=== PATIENT | female | born 1990 | race American Indian/Alaskan Native ===

== ENCOUNTER 2019-10-20 12:29 | Inpatient (IN) | payer MEDICAID ==
--- NOTE | 2019-10-20 14:39 | Ultrasound Report ---
ULTRASOUND OBSTETRIC Indication: size smaller than dates Findings: There is a single intrauterine . BPD = 8.3 cm = 33 weeks, 3 day(s). Head circumference = 28.5 cm = 31 weeks, 2 day(s). Abdominal circumference = 24.1 cm = 28 weeks, 3 day(s). Femur length = 6.4 cm = 33 weeks, 3 day(s). Overall estimated sonographic age = 31 weeks, 4 day(s). heart rate is 137 beats per minute. Estimated weight is 1610 grams position is cephalic. Amniotic fluid volume appears normal. LYNDA equals 7 cm Impression: 1. Single living intrauterine with estimated sonographic age of 31 weeks, 4 day(s). 2. Sonographic dates are approximately 4 weeks less than patient's last period dates. BIOPHYSICAL PROFILE INDICATION: Size smaller than dates COMPARISON: None FINDINGS: breathing movement: 2/2 movement: 0/2 posture and tone: 0/2 Qualitative amniotic fluid volume: 2/2 IMPRESSION: Total score for biophysical profile is 4/8 heart rate is 131 bpm Signer Name: Leandro Franco MD Signed: 10/20/2019 2:34 PM Workstation Name: [id number]
[2019-10-20] MEDS ORDERED: FAMOTIDINE 20 MG/2 ML INJ IV SCH (15:23)
--- NOTE | 2019-10-20 15:44 | History and Physical Report ---
History of Present Illness Date of examination: 10/20/19 (Pt @ 35.5 wks, measuring 31 wks) Date of admission: 10/20/2019 Chief complaint: Pt @ 35.5 wks today measuring 31wks size in office. Also with audible deceleration heard on doppler in office. History of present illness: EDC Calculations LMP: 11/19/2019 EDC Confirmation: 11/19/2019 Gestational Age: 23 6/7 weeks Past History : 7 Term Births: 4 Premature Births: 0 Living Children: 4 Para: 4 Mult. Births: 0 Prev : 4 Prev. attempt? 0 Aborta: 2 Elect. Ab: 0 Spont. Ab: 2 Ectopics: 0 # 1 Delivery date: 06/10/2007 Weeks Gestation: 38 Delivery type: Anesthesia type: general Delivery location: [facility] Sex: Female weight: 5 Comments: emergent c/s abruption # 2 Delivery date: 10/2009 Weeks Gestation: 4 Delivery type: SAB # 3 Delivery date: 09/08/2010 Weeks Gestation: 38 Delivery type: Anesthesia type: epidural Delivery location: [facility] Sex: Male weight: 7 # 4 Delivery date: 2011 Weeks Gestation: 4 Delivery type: SAB # 5 Delivery date: 11/28/2012 Weeks Gestation: 38 Delivery type: Anesthesia type: epidural Delivery location: [facility] Sex: Female weight: 5 # 6 Delivery date: 04/02/2017 Weeks Gestation: 38 Delivery type: Anesthesia type: epidural Delivery location: [facility] Infant Sex: Male weight: 5 Comments: injury to urethra Risk Factors: Smoked Tobacco Use: Never smoker Smokeless Tobacco Use: Never Passive smoke exposure: no Drug use: no HIV high-risk behavior: no Alcohol use: no Exercise: yes Times per week: 2 Seatbelt use: preg-children counselor % Dietary Counseling: pn yes Past Medical History: Negative Past Medical History Past Surgical History: c/s x4. repair to urethra 07/2017 Past Medical History Surgery (Non-pmo business analyst): c/s x4. repair to urethra 07/2017 Abnormal PAP: negative BELKIS Exposure: negative Infertility: negative Uterine Anomaly: negative Uterine Surgery (not C/S): negative Other Gynecologic Problems: negative Family Hx: mom-diabetes mgf-diabetes sister-diabetes Social Hx: single. lives with children unemployed Infection History Hx of STD: none HIV Risk Eval: no Hepatitis B Risk Eval: low risk Partner hx. of genital herpes: no Varicella/Chicken Pox Status: Previous Disease TB Risk: no Genetic History Congenital Heart Defect: Mom: no Dad: no Ernestina Disease: Mom: no Dad: no Thalassemia Mom: no Dad: no Neural Tube Defect Mom: no Dad: no Down's Syndrome Mom: no Dad: no Westley-Sachs Mom: no Dad: no Sickle Cell Disease/Trait Mom: no Dad: no Hemophilia Mom: no Dad: no Muscular Dystrophy Mom: no Dad: no Cystic Fibrosis Mom: no Dad: no [place] Chorea Mom: no Dad: no Mental Retardation Mom: no Dad: no Fragile X Mom: no Dad: no Other Genetic/Chromosomal Disorder Mom: no Dad: no Child w/other defect Mom: no Dad: no Enviromental Exposures Enviromental Exposures Reviewed Xray Exposure: yes Medication, drug, or alcohol use since LMP: no Chemical/Other Exposure: no Exposure to Cat Liter: no Hx of Parvovirus (Fifth Disease): no Occupational Exposure to Children: none Comments: with daughter for x ray in February Active Medications (reviewed today): None Current Allergies (reviewed today): No known allergies Past History Past Medical History: no pertinent history Past Surgical History: section ( section X4), other (Repair to uretha in 07/2017.) Family/Genetic History: none Social history: no significant social history - Obstetrical History Expected Date of Delivery: 11/19/19 Actual Gestation: 35 Week(s) 5 Day(s) : 7 Para: 4 Hx # Term Pregnancies: 4 Number of Pregnancies: 0 Spontaneous Abortions: 2 Induced : 0 Number of Living Children: 4 Medications and Allergies Allergies Allergy/AdvReac Type Severity Reaction Status Date / Time No Known Allergies Allergy Verified 10/20/19 12:36 Active Meds: Active Medications Citric Acid/Sodium Citrate (Bicitra) 30 ml PO ONCE ONE Stop: 10/20/19 16:24 Famotidine (Pepcid) 20 mg IV ONCE SELINA Stop: 10/20/19 23:24 Oxytocin/Sodium Chloride (Pitocin/Ns 20 Unit/1000ml Drip) 20 units in 1,000 mls @ 0 mls/hr IV TITR SELINA Lactated Ringer's (Lactated Ringers) 1,000 mls @ 2,250 mls/hr IV PREOP SELINA Stop: 10/21/19 16:27 Cefazolin Sodium (Ancef/Ns 1 Gm/50 Ml) 1 gm in 50 mls @ 100 mls/hr IV PREOP NR; Protocol Stop: 10/21/19 15:59 Metoclopramide HCl (Reglan) 10 mg IV ONCE ONE Stop: 10/20/19 16:24 Review of Systems All systems: negative - Vital Signs Vital signs: Vital Signs Pulse BP Pulse Ox 82 106/65 99 10/20/19 13:05 10/20/19 13:05 10/20/19 13:05 Temp Pulse Resp BP Pulse Ox 98.1 F 89 20 101/63 100 10/20/19 13:07 10/20/19 15:35 10/20/19 13:07 10/20/19 14:32 10/20/19 15:35 - Physical Exam Breasts: Positive: deferred Cardiovascular: Regular rate Lungs: Positive: Normal air movement Abdomen: Positive: normal appearance Genitourinary (Female): Positive: normal external genitalia, normal perenium Vulva: both: normal Vagina: Positive: normal moisture Uterus: Positive: other ( uterus) Anus/Rectum: Positive: normal perianal skin Extremities: Positive: normal Deep Tendon Reflex Grade: Normal +2 - Obstetrical Uterine Contraction Monitor Mode: External Uterine Contraction Pattern: Absent Uterine Tone Measurement Phase: Resting Results All other labs normal. GBS UNKNOWN. Collected in office on 10/20/2019. Results pending. HBsAg Screen Negative Negative *1 RPR Non Reactive Non Reactive *2 Rubella Antibodies, IgG 1.76 index Immune >0.99 *3 Non-immune <0.90 Equivocal 0.90 - 0.99 Immune >0.99 ABO Grouping O *4 Rh Factor Positive *5 Please note: Prior records for this patient's ABO / Rh type are not available for additional verification. Antibody Screen Negative Negative *6 WBC 7.4 x10E3/uL 3.4-10.8 *7 RBC [L] 3.46 x10E6/uL 3.77-5.28 *8 Hemoglobin [L] 8.4 g/dL 11.1-15.9 *9 Hematocrit [L] 26.9 % 34.0-46.6 *10 MCV [L] 78 fL 79-97 *11 MCH [L] 24.3 pg 26.6-33.0 *12 MCHC [L] 31.2 g/dL 31.5-35.7 *13 RDW [H] 18.1 % 12.3-15.4 *14 Platelets 408 x10E3/uL 150-450 *15 Neutrophils 74 % Not Estab. *16 Lymphs 18 % Not Estab. *17 Monocytes 6 % Not Estab. *18 Eos 1 % Not Estab. *19 Basos 0 % Not Estab. *20 ! Immature Cells <No Reported Value> *21 Neutrophils (Absolute) 5.6 x10E3/uL 1.4-7.0 *22 Lymphs (Absolute) 1.3 x10E3/uL 0.7-3.1 *23 Monocytes(Absolute) 0.4 x10E3/uL 0.1-0.9 *24 Eos (Absolute) 0.0 x10E3/uL 0.0-0.4 *25 Baso (Absolute) 0.0 x10E3/uL 0.0-0.2 *26 ! Immature Granulocytes 1 % Not Estab. *27 ! Immature Grans (Abs) 0.1 x10E3/uL 0.0-0.1 *28 ! NRBC <No Reported Value> *29 Hematology Comments: <No Reported Value> *30 Tests: (2) HB Solu + Rflx [facility] (968083) Hemoglobin (Hgb) Solubility Negative Negative *31 Tests: (3) Panel 542537 ([id number]) HIV Screen 4th Generation wRfx Non Reactive Non Reactive *32 Tests: (4) Gest. Diabetes 1-Hr Screen (531938) ! Gestational Diabetes Screen 94 mg/dL 65-139 *33 According to ADA, a glucose threshold of >139 mg/dL after 50-gram load identifies approximately 80% of women with gestational diabetes mellitus, while the sensitivity is further increased to approximately 90% by a threshold of >129 mg/dL. Tests: (5) HCV Ab w/Rflx to Verification ([id number]) ! HCV Ab <0.1 s/co ratio 0.0-0.9 *34 Tests: (6) Comment: (058382) ! Comment: SPRCS *35 Non reactive HCV antibody screen is consistent with no HCV infection, unless recent infection is suspected or other evidence exists to indicate HCV infection. Assessment and Plan A: Pt is a 29 y.o. @ 35.5 wks measuring 31 wks in office. BPP 4/8 in OB triage. Newly diagnosed IUGR by today's L&D triage ultrasound. P: Admit for delivery. Continue to monitor maternal and status. - Patient Problems (1) Abnormal test Current Visit: Yes Status: Acute Plan to address problem: Plan for delivery due to BPP being 4/8. 0 for movement, 0 for posture/tone. (2) IUGR (intrauterine growth restriction) Current Visit: Yes Status: Acute Plan to address problem: Pt for continuous monitoring.
[2019-10-20] MEDS ORDERED: LACTATED RINGERS 1,000 ML IV SCH (16:00)
[2019-10-20] MEDS ORDERED: OXYTOCIN 20 UNIT/1000ML DRIP 20 UNITS/1,000 ML BAG IV SCH ×2 (16:00→19:00)
[2019-10-20] MEDS ORDERED: ceFAZolin/NS 1 GM/50 ML 1 GM/50 ML BAG IV NR (16:00)
[2019-10-20] MEDS ORDERED: BICITRA ORAL LIQD 30ML PO ONE (16:23)
[2019-10-20] MEDS ORDERED: METOCLOPRAMIDE 10 MG/2 ML INJ IV ONE (16:23)
[2019-10-20] MEDS ORDERED: ceFAZolin/Water 2 GM/20 ML 2 GM/20 ML SYRINGE IV ONE (16:55)
[2019-10-20] MEDS ORDERED: ceFAZolin/Water 2 GM/20 ML 2 GM/20 ML SYRINGE IV NR (17:00)
[2019-10-20 17:07] LABS: Basophils # (Auto) 0.1 K/mm3 (0.0-0.1); Basophils % (Auto) 0.8 % (0.0-1.8); Eosinophils % (Auto) 0.4 % (0.0-4.3); Hematocrit 30.1 % (30.3-42.9); Hemoglobin 9.5 gm/dl (10.1-14.3); Lymphocytes # (Auto) 1.5 K/mm3 (1.2-5.4); Lymphocytes % (Auto) 18.2 % (13.4-35.0); Mean Corpuscular HGB Conc 32 % (30-34); Mean Corpuscular Volume 76 fl (79-97); Monocytes # (Auto) 0.6 K/mm3 (0.0-0.8); Monocytes % (Auto) 6.9 % (0.0-7.3); Platelet Count 452 K/mm3 (140-440); Red Blood Count 3.96 M/mm3 (3.65-5.03); Red Cell Distribution Width 19.3 % (13.2-15.2)
[2019-10-20] MEDS ORDERED: HYDROmorphone 1 MG/1 ML INJ IV PRN (17:08)
[2019-10-20] MEDS ORDERED: ONDANSETRON 4 MG/2 ML INJ IV PRN (17:08)
--- NOTE | 2019-10-20 17:12 | Anesthesia Consultation ---
Anesthesia Consult and Med Hx Date of service: 10/20/19 - Airway Anesthetic Teeth Evaluation: Poor ROM Head & Neck: Adequate Mental/Hyoid Distance: Adequate Mallampati Class: Class III Intubation Access Assessment: Probably Good - Pulmonary Exam CTA: Yes - Cardiac Exam Cardiac Exam: RRR - Pre-Operative Health Status ASA Pre-Surgery Classification: ASA3, Emergency Proposed Anesthetic Plan: Spinal - Pre-Anesthesia Comment Pre-Anesthesia Comments: PSH: CSECTIONX4, URETHRA REPAIR - Pulmonary Hx Smoking: No Hx Asthma: No Hx Respiratory Symptoms: No SOB: No COPD: No Home Oxygen Therapy: No Hx Pneumonia: No Hx Sleep Apnea: No - Cardiovascular System Hx Hypertension: No Hx Coronary Artery Disease: No Hx Heart Attack/AMI: No Hx Angina: No Hx Percutaneous Transluminal Coronary Angioplasty (PTCA): No Hx Cardia Arrhythmia: No Hx Pacemaker: No Hx Internal Defibrillator: No Hx Valvular Heart Disease: No Hx Heart Murmur: No Hx Peripheral Vascular Disease: No - Central Nervous System Hx Neuromuscular Disorder: No Hx Seizures: No CVA: No Hx Back Pain: No Hx Psychiatric Problems: No - Gastrointestinal Hx Ulcer: No Hx Gastroesophageal Reflux Disease: No - Endocrine Hx Renal Disease: No Hx End Stage Renal Disease: No Hx Cirrhosis: No Hx Liver Disease: No Hx Insulin Dependent Diabetes: No Hx Non-Insulin Dependent Diabetes: No Hx Thyroid Disease: No Hx Hypothyroidism: No Hx Hyperthyroidism: No - Hematic Hx Anemia: No Hx Sickle Cell Disease: No - Other Systems Hx Alcohol Use: No Hx Substance Use: No Hx Cancer: No Hx Obesity: Yes
--- NOTE | 2019-10-20 17:13 | Anesthesia Day of Surgery ---
Anesthesia Day of Surgery - Day of Surgery Patient Examined: Yes Patient H&P Reviewed: Yes Patient is NPO: Yes Beta Blockers: No Cardiac Clearance: No Pulmonary Clearance: No Andrea's Test: N/A
[2019-10-20] MEDS ORDERED: SODIUM CHLORIDE 0.9% IRR 1,500 ML BOTTLE IR ONE (17:35)
[2019-10-20] MEDS ORDERED: WATER FOR IRRIG STERILE 1,500 ML BOTTLE IR ONE (17:35)
[2019-10-20] MEDS ORDERED: PHENYLEPHRINE 10 MG/1 ML INJ SDV ONE (17:59)
[2019-10-20] MEDS ORDERED: DEXMEDETOMIDINE 200 MCG/2 ML VIAL IV ONE (17:59)
--- NOTE | 2019-10-20 18:53 | Operative Report ---
Operative Report Operative Report: Date of procedure: 10/20/2019 Pre-operative diagnosis: 35 5/7 weeks gestation Category 3 tracing Nonreassuring testing Desires permanent sterilization Perfused section 4 Post-operative diagnosis: Same Procedure name(s): Stat Repeat low transverse section via Pfannenstiel skin incision Bilateral tubal ligation via placement of Filshie clips Lysis of adhesions Surgeon: Patricia Temple M.D. Engineering Operator: MIGUEL Anesthesia: Spinal EBL: 600 mL Urine output: 300 mL of clear urine out at end of procedure Fluids: 1200 mL Findings: Liveborn female infant weight 3 lbs. 14 oz. Apgars of 8 and 9 at one and 5 minutes Adhesions of the bowel to the right adnexa and uterine fundus Indications: Patient is in the office was noted to have audible decelerations of the heart. Patient was sent to triage for evaluation with biophysical profile. Biophysical profile was abnormal with a score of 4 out of 10. While in triage patient noted to have continuous decelerations. She also desired permanent sterilization. All risks benefits and alternatives were discussed with the patient. Consents were signed and placed on the chart. Upon entry into the operating room heart tones were noted to be in the 80s as at this point that the section was stat. Procedure: Patient was taking to the operating room. Patient was then prepped and draped in sterile fashion after anesthesia was found to be adequate. A low transverse skin incision was made with the scalpel through previous incisional scar and carried down to the underlying layer of fascia with the scalpel. The fascia was then incised in the midline and this incision was extended bilaterally with the scalpel. The superior aspect of the fascia was grasped with Zuly clamps tented upward and dissected off of the anterior rectus muscles with the scalpel. In similar fashion the inferior aspect of the fascia was grasped with Zuly clamps tented upward and dissected off of the anterior rectus muscles. The rectus muscles were then bluntly divided in the midline. The peritoneum was identified and entered into sharply. The Alfredo retractor was placed. A lower transverse uterine incision was made with the scalpel and extended bilaterally with blunt dissection. Artificial rupture of membranes was performed yielding clear amniotic fluid that was very minimal . The infant's head was then delivered atraumatically. The anterior shoulder and rest of infant delivered without difficulty. The umbilical cord was clamped x2. The cord was cut. The infant was then placed in sterile bassinet. The cord blood was collected. The placenta was manually extracted in its entirety. The uterus was exteriorized and cleared of all clots and debris. Care was then taken to dissect the bowel off of the fundus of the uterus and right adnexa. Bowel was noted to be intact at the end of dissection. The uterine incision was closed using 0 Vicryl in a running locking fashion. Figure of 8 sutures using 0 Vicryl were done and along the uterine incision to secure excellent hemostasis. Attention was then turned to the fallopian tubes. The tube was elevated with a Sadia .Filshie clip was applied. Care was done to make sure that the Filshie clip encompassed the entire fallopian tube. This procedure was done bilaterally. Excellent hemostasis was noted. The uterus was returned to the abdomen. The gutters were also irrigated. The anterior rectus muscles were reapproximated using 3-0 Vicryl. The anterior rectus fascia was reapproximated using 0 Vicryl in a running fashion. The subcuticular fat was reapproximated using 2-0 Vicryl in a running fashion. The skin was reapproximated with a 4-0 Monocryl with a subcuticular stitch.. The patient tolerated the procedure well. Sponge lap and needle counts were all correct x3. Patient was taken to the recovery room awake and in stable condition.
[2019-10-20] MEDS ORDERED: SIMETHICONE 80 MG CHEW TAB PO PRN (18:56)
[2019-10-20] MEDS ORDERED: WITCH HAZEL/ GLYCERIN PAD TP PRN (18:56)
[2019-10-20] MEDS ORDERED: NALOXONE 0.4 MG/1 ML INJ IV PRN (18:56)
[2019-10-20] MEDS ORDERED: LANOLIN/ZINC/DIMETHICONE (LANSINOH) 7 GM TP PRN (18:56)
[2019-10-20] MEDS ORDERED: D5W/LACTATED RINGERS 1,000 ML IV SCH (19:00)
--- NOTE | 2019-10-20 19:06 | Post Anesthesia Evaluation ---
- Post Anesthesia Evaluation Patient Participated: Yes Airway Patent: Yes Stable Respiratory Function: Yes Nausea/Vomiting: No Temp > 96.8F: Yes Pain Manageable: Yes Adequeate Hydration: Yes Anesthesia Complications: No Block Receding Appropriately: Yes Patient on Ventilator: No
[2019-10-20] MEDS: HYDROmorphone 1 MG/1 ML INJ IV PRN (21:27)
[2019-10-20] MEDS: ceFAZolin/NS 1 GM/50 ML 1 GM/50 ML BAG IV SCH (21:34)
--- NOTE | 2019-10-20 23:29 | Event Note ---
Date: 10/20/19 Pt rapid HIV screening was reactive. Full panel ordered and pending at this time. Peds aware.
[2019-10-21] MEDS: KETOROLAC 30 MG/1 ML INJ IV PRN ×3 (00:10→18:20)
[2019-10-21] MEDS: HYDROmorphone 1 MG/1 ML INJ IV PRN (01:55)
[2019-10-21] MEDS: ceFAZolin/NS 1 GM/50 ML 1 GM/50 ML BAG IV SCH (05:00)
[2019-10-21 06:34] LABS: Hematocrit 25.6 % (30.3-42.9); Hemoglobin 8.1 gm/dl (10.1-14.3)
--- NOTE | 2019-10-21 09:18 | Progress Note ---
Assessment and Plan A: 29 y.o. s/p rpt d/t abnormal testing, now with ID consult due to positive HIV P24 P: Continue with care ID consult ordered - Patient Problems (1) Abnormal test Current Visit: Yes Status: Acute (2) IUGR (intrauterine growth restriction) Current Visit: Yes Status: Acute Subjective - Subjective Date of service: 10/21/19 (Pt tearful, wanting to see ) Interval history: EDC Calculations LMP: 11/19/2019 EDC Confirmation: 11/19/2019 Gestational Age: 23 6/7 weeks Past History : 7 Term Births: 4 Premature Births: 0 Living Children: 4 Para: 4 Mult. Births: 0 Prev : 4 Prev. attempt? 0 Aborta: 2 Elect. Ab: 0 Spont. Ab: 2 Ectopics: 0 # 1 Delivery date: 06/10/2007 Weeks Gestation: 38 Delivery type: Anesthesia type: general Delivery location: [facility] Sex: Female weight: 5 Comments: emergent c/s abruption # 2 Delivery date: 10/2009 Weeks Gestation: 4 Delivery type: SAB # 3 Delivery date: 09/08/2010 Weeks Gestation: 38 Delivery type: Anesthesia type: epidural Delivery location: [facility] Infant Sex: Male weight: 7 # 4 Delivery date: 2011 Weeks Gestation: 4 Delivery type: SAB # 5 Delivery date: 11/28/2012 Weeks Gestation: 38 Delivery type: Anesthesia type: epidural Delivery location: [facility] Infant Sex: Female weight: 5 # 6 Delivery date: 04/02/2017 Weeks Gestation: 38 Delivery type: Anesthesia type: epidural Delivery location: [facility] Sex: Male weight: 5 Comments: injury to urethra Risk Factors: Smoked Tobacco Use: Never smoker Smokeless Tobacco Use: Never Passive smoke exposure: no Drug use: no HIV high-risk behavior: no Alcohol use: no Exercise: yes Times per week: 2 Seatbelt use: preg-patent counsel % Dietary Counseling: pn yes Past Medical History: Negative Past Medical History Past Surgical History: c/s x4. repair to urethra 07/2017 Past Medical History Surgery (Non-water commissioner): c/s x4. repair to urethra 07/2017 Abnormal PAP: negative BELKIS Exposure: negative Infertility: negative Uterine Anomaly: negative Uterine Surgery (not C/S): negative Other Gynecologic Problems: negative Family Hx: mom-diabetes mgf-diabetes sister-diabetes Social Hx: single. lives with children unemployed Infection History Hx of STD: none HIV Risk Eval: no Hepatitis B Risk Eval: low risk Partner hx. of genital herpes: no Varicella/Chicken Pox Status: Previous Disease TB Risk: no Genetic History Congenital Heart Defect: Mom: no Dad: no Ernestina Disease: Mom: no Dad: no Thalassemia Mom: no Dad: no Neural Tube Defect Mom: no Dad: no Down's Syndrome Mom: no Dad: no Westley-Sachs Mom: no Dad: no Sickle Cell Disease/Trait Mom: no Dad: no Hemophilia Mom: no Dad: no Muscular Dystrophy Mom: no Dad: no Cystic Fibrosis Mom: no Dad: no [place] Chorea Mom: no Dad: no Mental Retardation Mom: no Dad: no Fragile X Mom: no Dad: no Other Genetic/Chromosomal Disorder Mom: no Dad: no Child w/other defect Mom: no Dad: no Enviromental Exposures Enviromental Exposures Reviewed Xray Exposure: yes Medication, drug, or alcohol use since LMP: no Chemical/Other Exposure: no Exposure to Cat Liter: no Hx of Parvovirus (Fifth Disease): no Occupational Exposure to Children: none Comments: with daughter for x ray in February Active Medications (reviewed today): None Current Allergies (reviewed today): No known allergies Patient reports: pain well controlled, ambulating normally [place]: doing well, in NICU Objective - Vital Signs Latest vital signs: Vital Signs Temp Pulse Resp BP Pulse Ox 10/21/19 08:12 98.6 F 82 16 106/65 98 10/21/19 06:37 98.5 F 84 20 99/63 97 10/21/19 05:40 18 10/21/19 05:10 18 10/21/19 02:25 18 10/21/19 01:55 18 10/21/19 00:44 98.0 F 73 18 102/63 98 10/21/19 00:40 18 10/21/19 00:10 18 10/20/19 21:57 18 10/20/19 21:27 18 10/20/19 20:56 97.3 F L 60 18 105/69 100 10/20/19 19:50 97.5 F L 62 20 101/65 99 10/20/19 19:40 67 18 95/61 98 10/20/19 19:25 63 18 102/66 96 10/20/19 19:10 97.8 F 63 17 100/63 97 10/20/19 19:05 64 19 103/66 96 10/20/19 19:00 64 18 106/64 96 10/20/19 18:55 63 20 107/70 97 10/20/19 18:50 64 20 109/70 96 10/20/19 18:45 63 22 114/75 97 10/20/19 18:37 97.6 F 55 L 23 119/61 100 10/20/19 16:35 88 97 10/20/19 16:30 82 100 10/20/19 16:25 83 99 10/20/19 16:20 84 100 10/20/19 16:15 82 100 10/20/19 16:10 78 100 10/20/19 16:05 85 98 10/20/19 16:00 85 99 10/20/19 15:55 81 99 10/20/19 15:50 84 99 10/20/19 15:48 83 94 10/20/19 15:45 82 100 10/20/19 15:40 84 99 10/20/19 15:35 89 100 10/20/19 15:30 93 H 100 10/20/19 15:25 85 100 10/20/19 15:20 90 98 10/20/19 15:15 82 100 10/20/19 15:10 87 99 10/20/19 15:05 90 99 10/20/19 15:00 90 99 10/20/19 14:55 92 H 98 10/20/19 14:50 86 100 10/20/19 14:45 82 98 10/20/19 14:40 86 97 10/20/19 14:35 87 97 10/20/19 14:32 89 101/63 10/20/19 14:30 79 96 10/20/19 13:07 98.1 F 20 10/20/19 13:05 80 106/65 99 Intake and Output 10/20/19 10/21/19 10/21/19 22:59 06:59 14:59 Intake Total 1450 Output Total 400 Balance 1050 Intake: IV 1450 ANCEF/NS 1 GM/50 ML 1 gm 50 In 50 ml @ 100 mls/hr IV Q8H [facility] Rx#:[id number] Output: Urine 400 Other: Estimated Blood Loss 600 - Exam Breasts: Present: deferred Cardiovascular: Present: Regular rate Lungs: Present: Normal air movement Abdomen: Present: normal appearance Uterus: Present: normal, firm, other (Moderate lochia rubra) Deep Tendon Reflex Grade: Normal +2 Incision: Present: dry, intact, dressed Comments: Spoke with pt regarding HIV results and that an infectious disease consult was ordered. I spoke with patient that further testing will be needed because the rapid HIV was negative, but the HIV PC24 antigen was positive. Pt is tearful and I offered emotional support and answered any questions that the patient had. All questions and concerns were addressed. - Labs Labs: Abnormal lab results 10/20/19 10/21/19 Range/Units 16:50 06:13 Hgb 9.5 L 8.1 L (10.1-14.3) gm/dl Hct 30.1 L 25.6 L (30.3-42.9) % MCV 76 L (79-97) fl MCH 24 L (28-32) pg RDW 19.3 H (13.2-15.2) % Plt Count 452 H (140-440) K/mm3 Seg Neutrophils % 73.7 H (40.0-70.0) %
[2019-10-21] MEDS: HYDROcodone/ACETAMINOPHEN 5-325 MG TAB PO PRN ×2 (10:26→13:16)
--- NOTE | 2019-10-21 11:14 | Consultation ---
History of Present Illness - Reason for Consult Consult date: 10/21/19 - History of Present Illness 29 yo F no PMHx presented to the hospital for , and is now s/p . She had minimal pre-ambrose care, and in the maryuri- period an HIV test was drawn, which has returned a positive p24 with negative HIV antibodies. She denies having any new sexual partners, is monogamous with one male partner. She believes him to be HIV negative. She denies any IVDU. She reports having previously negative HIV testing in the past with her prior pregnancies. Other testing is negative. Afebrile, normal white count. Not currently on antibiotics. No cultures taken. Imaging personally reviewed: None Review of systems: Bold if positive; otherwise negative GENERAL: fever, chills, weight loss, fatigue, night sweats EYES: blurry vision, eye pain HENT: headache, hearing loss, sore throat, dysphagia, sinus pain CARDIO: chest pain, palpitations, orthopnea PULM: shortness of breath, wheezing, cough, sputum, hemoptysis GI: nausea, vomiting, diarrhea, abdominal pain, blood in stool : urinary frequency, urgency, dysuria, urethral discharge MSK: joint pain, back pain, swelling SKIN: rash, redness HEME: easy bruising, bleeding Past History Past Surgical History: Social history: no significant social history Family history: no significant family history Medications and Allergies Allergies Allergy/AdvReac Type Severity Reaction Status Date / Time No Known Allergies Allergy Verified 10/20/19 12:36 Home Medications Medication Instructions Recorded Confirmed Last Taken Type Docusate Sodium [Colace] 100 mg PO BID PRN #60 capsule 10/20/19 Unknown Rx Ferrous Sulfate [Feosol 325 MG tab] 325 mg PO QDAY #60 tablet 10/20/19 Unknown Rx Ibuprofen [Motrin 800 MG tab] 800 mg PO Q8HR PRN #30 tablet 10/20/19 Unknown Rx oxyCODONE /ACETAMINOPHEN [Percocet 1 tab PO Q4HR #30 tab 10/20/19 Unknown Rx 5/325] Active Meds: Active Medications Acetaminophen/Hydrocodone Bitart ([place] 5/325) 1 each PO Q4HR PRN PRN Reason: Pain, Moderate (4-6) Last Admin: 10/21/19 10:26 Dose: 1 each Documented by: Diphtheria/Tetanus/Acell Pertussis (Boostrix) 0.5 ml IM .ONCE ONE Stop: 10/21/19 18:59 Hydromorphone HCl (Dilaudid) 0.5 mg IV Q5M PRN PRN Reason: BREAK Hydromorphone HCl (Dilaudid) 0.5 mg IV Q4H PRN PRN Reason: breakthrough pain > 7/10 Last Admin: 10/21/19 01:55 Dose: 0.5 mg Documented by: Oxytocin/Sodium Chloride (Pitocin/Ns 20 Unit/1000ml Drip) 20 units in 1,000 mls @ 250 mls/hr IV DIRECT SELINA Dextrose/Lactated Ringer's (D5lr) 1,000 mls @ 125 mls/hr IV DIRECT SELINA Last Admin: 10/21/19 02:03 Dose: 125 mls/hr Documented by: Ibuprofen (Ibuprofen) 800 mg PO Q6H PRN PRN Reason: Pain, Mild (1-3) Ketorolac Tromethamine (Toradol) 30 mg IV Q6H PRN PRN Reason: Pain, Moderate (4-6) Stop: 10/25/19 18:55 Last Admin: 10/21/19 05:10 Dose: 30 mg Documented by: Multi-Ingredient Ointment (Lansinoh) 1 applic TP PRN PRN PRN Reason: dryness/cracking Naloxone HCl (Naloxone) 0.1 mg IV Q2MIN PRN PRN Reason: Res Rate </= 8 or 02 SAT < 92% Simethicone (Mylicon) 80 mg PO Q6H PRN PRN Reason: Gas pain Sodium Chloride (Sodium Chloride Flush Syringe 10 Ml) 10 ml IV PRN NR Stop: 10/23/19 18:59 Witch Bertha/Glycerin (Tucks Pad) 1 each TP PRN PRN PRN Reason: Hemorrhoids/cleansing/soothing Physical Examination - Physical Exam Narrative exam: General Normal appearance, well developed, no acute distress Eyes - PERRLA, EOM intact ENT - Moist mucous membranes, no lymphadenopathy Neck - No noticeable or palpable swelling, redness or rash around throat or on face Lymph Nodes - No lymphadenopathy Cardiovascular - RRR no m/r/g, no JVD, no carotid bruits Lungs - Clear to auscultation, no use of accessory muscles, no crackles or wheezes. Skin - No rashes, skin warm and dry, no erythematous areas Abdomen - Normal bowel sounds, abdomen soft and nontender. scar Extremities - No edema, cyanosis or clubbing Musculoskeletal - 5/5 strength, normal range of motion, no swollen or erythematous joints. Neurological Alert and oriented x 3, CN 2-12 grossly intact. - Constitutional Vitals: Vital Signs Temp Pulse Resp BP Pulse Ox 98.6 F 82 16 106/65 98 10/21/19 08:12 10/21/19 08:12 10/21/19 08:12 10/21/19 08:12 10/21/19 08:12 Temperature -Last 24 Hours Temperature 98.6 F Temperature 98.5 F Temperature 98.0 F Temperature 97.3 F Temperature 97.5 F Temperature 97.8 F Temperature 97.6 F Temperature 98.1 F Results - Labs CBC & Chem 7: 10/21/19 06:13 Labs: Abnormal lab results 10/20/19 10/21/19 Range/Units 16:50 06:13 Hgb 9.5 L 8.1 L (10.1-14.3) gm/dl Hct 30.1 L 25.6 L (30.3-42.9) % MCV 76 L (79-97) fl MCH 24 L (28-32) pg RDW 19.3 H (13.2-15.2) % Plt Count 452 H (140-440) K/mm3 Seg Neutrophils % 73.7 H (40.0-70.0) % Assessment and Plan Cultures None Assessment: 29 yo F no PMHx admitted for , now with positive HIV p24 antigen. 1. Positive HIV p24 antigen - with negative antibodies. With these results either early infection (prior to development of antibodies) or false positive. Will order HIV viral load to determine if she is infected. At this point no need to treat the mother pending the results of the confirmatory testing. A qualitative RNA study was ordered yesterday, will order a quantitative study. 2. HIV - Regarding the child would recommend prophylaxis with zidovudine, raltegravir, and lamivudine. Defer to paediatrics. Recommend avoidance of breast feeding while confirmatory testing is pending. Child should be tested for HIV as well. Recs: - ordered quantitative HIV RNA - Prophylax child as above - Test child for HIV - avoid pending confirmation. Thank you for the consult, we will continue to follow. [facility] M: [phone] O: [phone] F: [phone]
[2019-10-21] MEDS ORDERED: TETANUS,DIPH,PERTUSS(ACELL) VACCINE 0.5 ML SYRINGE IM ONE (18:58)
[2019-10-21] MEDS: IBUPROFEN 800 MG TAB PO PRN (22:17)
[2019-10-22] MEDS: HYDROcodone/ACETAMINOPHEN 5-325 MG TAB PO PRN ×5 (00:08→22:58)
--- NOTE | 2019-10-22 10:55 | Progress Note ---
Assessment and Plan - Patient Problems (1) delivery delivered Current Visit: Yes Status: Acute Plan to address problem: POD#1 s/p RC/S with BTL: contine post c/s pathway (2) Anemia Current Visit: Yes Status: Acute Qualifiers: Other causes of anemia: acute posthemorrhagic Plan to address problem: start FeSO4 (3) Abnormal test Current Visit: Yes Status: Acute Plan to address problem: +HIV P24 antigen, followed by ISHA AGARWAL aware Subjective - Subjective Date of service: 10/22/19 Principal diagnosis: POD#1, s/p RCS w/ BTL Interval history: Sitting in bed, no complaints, minimal bleeding Patient reports: appetite normal, voiding normally, pain well controlled, flatus, ambulating normally [place]: in NICU Objective - Vital Signs Latest vital signs: Vital Signs Temp Pulse Resp BP Pulse Ox 10/22/19 08:47 98.5 F 83 18 102/60 96 10/22/19 00:27 98.4 F 90 20 102/64 99 10/21/19 16:36 98.9 F 86 20 111/69 98 10/21/19 12:06 99.0 F 83 16 101/60 96 Intake and Output 10/21/19 10/22/19 10/22/19 22:59 06:59 14:59 Intake Total 240 240 Balance 240 240 Intake: Intake, Free Water 240 240 Other: # Voids Void 1 1 - Exam Breasts: Present: normal Cardiovascular: Present: Regular rate Lungs: Present: Clear to auscultation, Normal air movement Abdomen: Present: normal appearance, soft, normal bowel sounds Uterus: Present: fundal height below umbilicus. Absent: tenderness Extremities: Present: normal. Absent: tenderness, edema Incision: Present: normal, dry, intact
[2019-10-22] MEDS: FERROUS SULFATE 325 MG TAB PO SCH ×2 (11:46→22:49)
[2019-10-22] MEDS: DOCUSATE SODIUM 100 MG CAP PO PRN (17:56)
[2019-10-23] MEDS: HYDROcodone/ACETAMINOPHEN 5-325 MG TAB PO PRN ×3 (04:49→18:20)
--- NOTE | 2019-10-23 09:43 | Progress Note ---
Assessment and Plan A: Pt is 29 y.o. s/p repeat on 10/20/2019, now with ID consult due to newly positive HIV P24 P: Pt initially wanted to be discharged home today, but has declined. Still awaiting results of HIV RNA Quant drawn and recommended by ID Discharge home 10/24/2019. - Patient Problems (1) Abnormal test Current Visit: Yes Status: Acute (2) IUGR (intrauterine growth restriction) Current Visit: Yes Status: Acute Subjective - Subjective Date of service: 10/23/19 (Pt doing well. Initially wanted to go home, now declines and states that she would like to go home on 10/24/2019 in the AM. ) Principal diagnosis: POD#3, s/p RCS w/ BTL, now with positive HIV P24, s/p ID consult Interval history: EDC Calculations LMP: 11/19/2019 EDC Confirmation: 11/19/2019 Gestational Age: 23 6/7 weeks Past History : 7 Term Births: 4 Premature Births: 0 Living Children: 4 Para: 4 Mult. Births: 0 Prev : 4 Prev. attempt? 0 Aborta: 2 Elect. Ab: 0 Spont. Ab: 2 Ectopics: 0 # 1 Delivery date: 06/10/2007 Weeks Gestation: 38 Delivery type: Anesthesia type: general Delivery location: [facility] Sex: Female weight: 5 Comments: emergent c/s abruption # 2 Delivery date: 10/2009 Weeks Gestation: 4 Delivery type: SAB # 3 Delivery date: 09/08/2010 Weeks Gestation: 38 Delivery type: Anesthesia type: epidural Delivery location: [facility] Infant Sex: Male weight: 7 # 4 Delivery date: 2011 Weeks Gestation: 4 Delivery type: SAB # 5 Delivery date: 11/28/2012 Weeks Gestation: 38 Delivery type: Anesthesia type: epidural Delivery location: [facility] Sex: Female weight: 5 # 6 Delivery date: 04/02/2017 Weeks Gestation: 38 Delivery type: Anesthesia type: epidural Delivery location: [facility] Inf[facility] Sex: Male weight: 5 Comments: injury to urethra Risk Factors: Smoked Tobacco Use: Never smoker Smokeless Tobacco Use: Never Passive smoke exposure: no Drug use: no HIV high-risk behavior: no Alcohol use: no Exercise: yes Times per week: 2 Seatbelt use: preg-child guidance counselor % Dietary Counseling: pn yes Past Medical History: Negative Past Medical History Past Surgical History: c/s x4. repair to urethra 07/2017 Past Medical History Surgery (Non-spot washer): c/s x4. repair to urethra 07/2017 Abnormal PAP: negative BELKIS Exposure: negative Infertility: negative Uterine Anomaly: negative Uterine Surgery (not C/S): negative Other Gynecologic Problems: negative Family Hx: mom-diabetes mgf-diabetes sister-diabetes Social Hx: single. lives with children unemployed Infection History Hx of STD: none HIV Risk Eval: no Hepatitis B Risk Eval: low risk Partner hx. of genital herpes: no Varicella/Chicken Pox Status: Previous Disease TB Risk: no Genetic History Congenital Heart Defect: Mom: no Dad: no Ernestina Disease: Mom: no Dad: no Thalassemia Mom: no Dad: no Neural Tube Defect Mom: no Dad: no Down's Syndrome Mom: no Dad: no Westley-Sachs Mom: no Dad: no Sickle Cell Disease/Trait Mom: no Dad: no Hemophilia Mom: no Dad: no Muscular Dystrophy Mom: no Dad: no Cystic Fibrosis Mom: no Dad: no [place] Chorea Mom: no Dad: no Mental Retardation Mom: no Dad: no Fragile X Mom: no Dad: no Other Genetic/Chromosomal Disorder Mom: no Dad: no Child w/other defect Mom: no Dad: no Enviromental Exposures Enviromental Exposures Reviewed Xray Exposure: yes Medication, drug, or alcohol use since LMP: no Chemical/Other Exposure: no Exposure to Cat Liter: no Hx of Parvovirus (Fifth Disease): no Occupational Exposure to Children: none Comments: with daughter for x ray in February Active Medications (reviewed today): None Current Allergies (reviewed today): No known allergies Patient reports: appetite normal, voiding normally, pain well controlled, flatus, ambulating normally : doing well, in NICU Objective - Vital Signs Latest vital signs: Vital Signs Temp Pulse Resp BP Pulse Ox 10/23/19 04:49 18 10/22/19 23:58 98.9 F 94 H 18 113/74 96 10/22/19 22:58 20 10/22/19 17:00 99.3 F 101 H 18 122/77 97 Intake and Output 10/22/19 10/23/19 10/23/19 22:59 06:59 14:59 Intake Total 600 480 Balance 600 480 Intake: Intake, Free Water 600 480 Other: # Voids Void 3 1 - Exam Breasts: Present: deferred Cardiovascular: Present: Regular rate, Normal S1, Normal S2 Lungs: Present: Normal air movement Abdomen: Present: normal appearance, soft, normal bowel sounds Vulva: both: normal Uterus: Present: normal, firm Extremities: Present: normal Deep Tendon Reflex Grade: Normal +2 Incision: Present: normal, dry, intact (open to air, no s/sx of infection)
[2019-10-23] MEDS: FERROUS SULFATE 325 MG TAB PO SCH ×2 (09:47→23:54)
--- NOTE | 2019-10-23 14:44 | Progress Note ---
Assessment and Plan Cultures None Assessment: 29 yo F no PMHx admitted for , now with positive HIV p24 antigen. 1. Positive HIV p24 antigen - with negative antibodies. With these results either early infection (prior to development of antibodies) or false positive. 2. HIV - Regarding the child defer to paediatrics. Recommend avoidance of breast feeding while confirmatory testing is pending. Child should be tested for HIV as well. Recs: - ordered quantitative HIV RNA -pending - Prophylax child as above - Test child for HIV - avoid pending confirmation. - if patient is discharge before VL is available please send to ID clinic in 1-2 weeks, call [phone] Svetlana Mccullough MD Subjective Date of service: 10/23/19 Principal diagnosis: POD#3, s/p RCS w/ BTL, now with positive HIV P24, s/p ID consult Interval history: Feels ok no complaints Objective - Exam Narrative Exam: General Normal appearance, well developed, no acute distress Eyes - PERRLA, EOM intact ENT - Moist mucous membranes, no lymphadenopathy Neck - No noticeable or palpable swelling, redness or rash around throat or on face Lymph Nodes - No lymphadenopathy Cardiovascular - RRR no m/r/g, no JVD, no carotid bruits Lungs - Clear to auscultation, no use of accessory muscles, no crackles or wheezes. Skin - No rashes, skin warm and dry, no erythematous areas Abdomen - Normal bowel sounds, abdomen soft and nontender. scar Extremities - No edema, cyanosis or clubbing Musculoskeletal - 5/5 strength, normal range of motion, no swollen or erythematous joints. Neurological Alert and oriented x 3, CN 2-12 grossly intact. - Constitutional Vitals: Vital Signs Temp Pulse Resp BP Pulse Ox 98.4 F 94 H 18 108/68 96 10/23/19 09:05 10/22/19 23:58 10/23/19 09:05 10/23/19 09:05 10/22/19 23:58 Temperature -Last 24 Hours Temperature 98.4 F Temperature 98.9 F Temperature 99.3 F - Labs CBC & Chem 7: 10/21/19 06:13
[2019-10-23] MEDS: DOCUSATE SODIUM 100 MG CAP PO PRN (23:54)
[2019-10-23] MEDS: IBUPROFEN 800 MG TAB PO PRN (23:54)
--- NOTE | 2019-10-24 08:13 | Discharge Summary ---
Providers - Providers Date of Admission: 10/20/19 12:30 Date of discharge: 10/24/19 Attending physician: FIDELIA EDWARDS 10/21/19 08:27 Consult to Physician [CONS] Routine Comment: Consulting Provider: MEGHANA PADILLA Physician Instructions: Reason For Exam: Positive HIV P24 Primary care physician: FIDELIA EDWARDS Hospitalization Reason for admission: nonreassuring status Condition: Good Pertinent studies: Positive HIV antigen postop H&H 8.1/25.6, asymptomatic anemia from acute blood loss Procedures: emergency repeat c/s and sterilization Hospital course: repeat c/s and postop course complicated by + HIV antigen (prev negative) and multiple previous abdominal surgeries. Disposition: TO HOME OR SELFCARE - Discharge Diagnoses (1) HIV p24 antigen positive Status: Acute Comment: follow up in ID clinic in 1-2 weeks, call [phone] (2) delivery delivered Status: Acute Core Measure Documentation - Palliative Care Palliative Care/ Comfort Measures: Not Applicable - Core Measures Any of the following diagnoses?: none Exam - Constitutional Vitals: Temp Pulse Resp BP Pulse Ox 98.7 F 77 18 98/77 96 10/23/19 23:30 10/23/19 23:30 10/24/19 00:54 10/23/19 23:30 10/23/19 17:10 General appearance: Present: no acute distress, well-nourished - EENT Eyes: Present: PERRL ENT: hearing intact, clear oral mucosa - Neck Neck: Present: supple, normal ROM - Respiratory Respiratory effort: normal Respiratory: bilateral: CTA - Cardiovascular Rhythm: regular - Extremities Extremities: No edema - Abdominal General gastrointestinal: Present: soft, non-tender, non-distended, normal bowel sounds Female genitourinary: Present: normal - Musculoskeletal Musculoskeletal: gait normal, strength equal bilaterally - Psychiatric Psychiatric: appropriate mood/affect, intact judgment & insight - Neurologic Neurologic: CNII-XII intact, moves all extremities - Additional findings Additional findings: fundus firm, lochia scant, bottle feeding, incision D&I Plan Activity: advance as tolerated Diet: regular Wound: open to air, keep clean and dry Care Plan Goals: [] Smoking cessation referral if applicable(refer to patient education folder for contact #) [] Refer to [facility]'s [facility] Booklet Call your doctor immediately for: * Fever > 100.5 * Heavy vaginal bleeding ( >1 pad per hour) * Severe persistent headache * Shortness of breath * Reddened, hot, painful area to leg or breast * Drainage or odor from incision. * Keep incision clean and dry at all times and follow doctor's instructions regarding bathing/showering Follow up with: MEGHANA PADILLA MD [Staff Physician] - 7 Days (Please call clinic for darline ointment in 1-2 weeks, call [phone]) FIDELIA EDWARDS MD [Primary Care Provider] - 7 Days (Please call [phone] to schedule your incision check appointment in 1 week. Call for any questions or concerns.) Forms: [facility] Discharge Summary Prescriptions: Docusate Sodium [Colace] 100 mg PO BID PRN #60 capsule PRN Reason: Constipation Ferrous Sulfate [Feosol 325 MG tab] 325 mg PO QDAY #60 tablet Ibuprofen [Motrin 800 MG tab] 800 mg PO Q8HR PRN #30 tablet PRN Reason: Pain, Moderate (4-6) oxyCODONE /ACETAMINOPHEN [Percocet 5/325] 1 tab PO Q4HR #30 tab
[2019-10-24] MEDS: FERROUS SULFATE 325 MG TAB PO SCH (10:10)
[2019-10-24 10:12] VITALS: BP 110/67
[2019-10-24 19:07] LABS: HIV-1 RNA QN PCR <1.30 Log cps/mL; HIV-1 RNA QN PCR <20 Copies/mL
[2019-10-28 07:22] LABS: HIV-1 Antibody Differentiation SEE SCANNED RESULT; HIV-2 Antibody Differentiation SEE SCANNED RESULT
== END 2019-10-24 13:00 | disposition home or self-care (01) | DRG 765 ==
LOC: TRG 12:29 → APU 12:30 → TRG 12:30 → LD 17:10 → OB 21:04
PROVIDERS: ADMIT Obstetrics & Gynecology; ATTEND Obstetrics & Gynecology
PROC: 10D00Z1 Extraction of Products of Conception, Low, Open Approach (ICD-10-PCS; principal; 2019-10-20)
PROC: 0UL70CZ Occlusion of Bilateral Fallopian Tubes with Extraluminal Device, Open Approach (ICD-10-PCS; 2019-10-20)
PROC: 3E0234Z Introduction of Serum, Toxoid and Vaccine into Muscle, Percutaneous Approach (ICD-10-PCS; 2019-10-21)
DX: O36.5930 Maternal care for other known or suspected poor fetal growth, third trimester, not applicable or unspecified (principal); D62 Acute posthemorrhagic anemia; O34.211 Maternal care for low transverse scar from previous cesarean delivery; E66.9 Obesity, unspecified; O99.214 Obesity complicating childbirth; O90.81 Anemia of the puerperium; Z21 Asymptomatic human immunodeficiency virus [HIV] infection status; O28.8 Other abnormal findings on antenatal screening of mother; Z3A.35 35 weeks gestation of pregnancy; Z37.0 Single live birth; Z23 Encounter for immunization; Z83.3 Family history of diabetes mellitus; Z30.2 Encounter for sterilization
CPT/HCPCS: 36415; 76816; 76819; 85014; 85018; 85025; 86592; 86689; 86850; 86900; 86901; 87535; 87536; 87806; 88307; G0378; J0690; J1170; J1885; J2370; J2590; J2765; J3490; J7120; J7121